=== PATIENT | male | born 1935 | race Asian ===

== ENCOUNTER 2017-07-15 15:54 | Emergency (ER) | payer MEDICARE ==
[~2017-07-15] VITALS: Ht 188 cm; Wt 79.4 kg
[2017-07-15 16:04] VITALS: BP 134/80
--- NOTE | 2017-07-15 16:22 | Emergency Room Report ---
History of Present Illness General Chief Complaint: Head Injury Source: Patient Present Illness HPI 82-year-old male patient presents to the ER status post mechanical fall. Patient reports that he tripped and fell. Patient denies dizziness, syncope. Patient reports no vision loss or vision changes. Patient denies fever, chest pain, shortness of breath. Patient reports that he has a small laceration over his right eyebrow. Patient reports bleeding from site of injury. Patient denies pain with ambulation. Patient denies pain in upper or lower extremities. Reports not currently taking any blood thinners. Patient unsure of tetanus status. Allergies: Uncoded Allergies: DYAZIBE (Allergy, Unknown, 07/15/17) Patient History Past Medical History: see triage record Reviewed Nursing Documentation: PMH: Agreed; PSxH: Agreed Nursing Documentation-PMH Past Medical History: No History, Except For Hx Cardiac Problems: Yes - heart murmur Hx Hypertension: Yes Hx Pacemaker: No Hx Asthma: No Hx COPD: No Hx Diabetes: No Hx Cancer: No Hx Gastrointestinal Problems: No History Of Psychiatric Problem: No Hx Neurological Problems: No Hx Cerebrovascular Accident: No Hx Seizures: No Review of Systems All Other Systems: negative except mentioned in HPI Physical Exam Vital Signs Date Time Temp Pulse Resp B/P (MAP) Pulse Ox O2 Delivery O2 Flow Rate FiO2 07/15/17 16:04 97.6 92 16 134/80 95 Room Air 97.5 Sp02 EP Interpretation: reviewed, normal General Appearance: well appearing, no apparent distress, alert, GCS 15, non- toxic Head: normocephalic, atraumatic, other - Negative Jackson sign, negative raccoon eyes, no skull depression Eyes: bilateral eye normal inspection, bilateral eye PERRL ENT: hearing grossly normal, normal pharynx, no angioedema, normal voice, TMs + canals normal, uvula midline, moist mucus membranes, other - no hemotympanum Neck: full range of motion Respiratory: lungs clear, normal breath sounds, no rhonchi, no respiratory distress, no accessory muscle use, no wheezing, speaking full sentences Cardiovascular #1: regular rate, rhythm, no edema Musculoskeletal: back normal, digits/nails normal, gait/station normal, normal range of motion, non-tender Neurologic: alert, oriented x3, responsive, beam dyer operator III-XII nml as tested, motor strength/tone normal, sensory intact, cerebellar normal, normal gait, speech normal Psychiatric: mood/affect normal Skin: laceration - 2 cm L-shaped laceration over right eyebrow, no active bleeding, linear, superficial Procedures Laceration/Wound Repair Laceration/Wound Repair : Consent: Verbal Wound Location: face Wound's Depth, Shape: superficial Wound Length (cm): 2 Wound Explored: contaminated Irrigated w/ Saline (ccs): 10 Betadine Prep?: Yes Anesthesia: Lidocaine w/ Epi Volume Anesthetic (ccs): 1 Wound Debrided: extensive Wound Repaired With: sutures Suture Size/Type: 6:0, other - ethilon Number of Sutures: 3 Layer Closure?: No Sterile Dressing Applied?: Yes Splint Applied?: No Sling Applied?: No Patient Tolerated: Well Complications: None Medical Decision Making PA Attestation Dr. Bernardo is my supervising Physician whom patient management has been discussed with. Diagnostic Impression: Primary Impression: Acute head injury Additional Impression: Laceration ER Course Pt presents to ED c/o laceration on right eyebrow s/p mechanical fall. DDX considered but are not limited to laceration, abrasion, contusion, cellulitis, ICH, skull fracture. Ordered CT of head to rule out acute pathology. VITAL SIGNS are WNL, patient is afebrile Ordered CT head, lidocaine, TDap. ED INTERVENTIONS: Wound was cleaned and copiously irrigated using normal saline, no FB removed. Local block using Lidocaine 1% with epi. Laceration repaired with 3 sutures, patient tolerated procedure well. Wound cleaned and covered using sterile dressing and Bacitracin. Keep dressing clean and dry. Followup for wound check and suture removal. TDAP provided. CT head negative for acute disease. Copy of report provided to patient. Take NSAIDs OTC for pain symptoms. Patient OK for discharge to home. Patient resting comfortably, in no acute distress, nontoxic appearing. DISCHARGE: Rx provided for Keflex At this time pt is stable for d/c to home. Patient resting comfortably, in no acute distress, nontoxic appearing, talking without difficulty. Will provide with patient care instructions and any necessary prescriptions. Patient to take medication as instructed. Care plan and follow-up instructions provided. Patient questions asked and answered. Patient reports understanding and agreement to treatment plan. Patient instructed to follow-up with primary care provider in 1-3 days for wound check and 5-7 days for removal of sutures. ER precautions given. Patient instructed to return to ER immediately for any new or worsening of symptoms. - Please note that this Emergency Department Report was dictated using [employer] dyer operator technology software, occasionally this can lead to erroneous entry secondary to interpretation by the dictation equipment. CT/MRI/US Diagnostic Results CT/MRI/US Diagnostic Results : Imaging Test Ordered: CT head Impression No evidence of acute intracranial hemorrhage, mass effect or critical edema. MRI may be obtained for more sensitive evaluation as clinically indicated. Atrophy and nonspecific periventricular hypoattenuation suggestive chronic ischemia microvascular changes. Last Vital Signs Date Time Temp Pulse Resp B/P (MAP) Pulse Ox O2 Delivery O2 Flow Rate FiO2 07/15/17 16:04 97.6 92 16 134/80 95 Room Air 97.5 Disposition: HOME, SELF-CARE Condition: Stable Scripts Cephalexin* (KEFLEX*) 500 Mg Capsule 500 MG ORAL EVERY 12 HOURS, #14 CAP 0 Refills Prov: Ozzie Damon 07/15/17 Patient Instructions: Facial Laceration, [id number], Head Injury, Adult, Easy -to-Read Additional Instructions: Patient instructed to follow-up with primary care provider in 1-3 days for wound check and 5-7 days for removal of sutures. Take medications as directed. OTC NSAIDs for pain relief. Keep wound clean and dry. Patient questions asked and answered. ER precautions given, patient instructed to return to ER immediately for any new or worsening of symptoms including but not limited to chest pain, SOB, intractable vomiting, vision loss, vision changes, BOOTH. Ozize Damon July 15, 2017 16:22
[2017-07-15] MEDS ORDERED: Lidocaine 1% MPF 10mg/ml 5ml IM ONE (17:00)
[2017-07-15] MEDS ORDERED: Tetanus/Diptheria/Pertussis Vaccine 0.5ml Syr IM ONE (17:00)
--- NOTE | 2017-07-15 17:02 | Diagnostic Imaging Report ---
Indication: Pain Technique: Continuous helical CT scanning of the head was performed utilizing automated exposure control without intravenous contrast material. Axial and coronal reconstructions were obtained. Comparison: None CT dose: Total DLP 1418.06 mGycm; CTDI vol 70.38 mGy Findings: There is no acute intracranial hemorrhage, midline shift, mass effect or cortical edema. There are bilateral basal ganglia calcifications. The ventricles, cisterns and sulci are prominent consistent with atrophy. Periventricular hypoattenuation is seen, a nonspecific finding. There are atherosclerotic vascular calcifications Visualized mastoid air cells and paranasal sinuses are unremarkable. No focal lesions of the bony calvarium or soft tissues of the scalp are seen. IMPRESSION: No evidence of acute intracranial hemorrhage, mass effect or cortical edema. MRI may be obtained for more sensitive evaluation as clinically indicated. Atrophy and nonspecific periventricular hypoattenuation suggestive of chronic ischemic microvascular changes. The CT scanner at [facility] is accredited by the [employer] and the scans are performed using protocols designed to limit radiation exposure to as low as reasonably achievable to attain images of sufficient resolution adequate for diagnostic evaluation.
[2017-07-15] MEDS ORDERED: CEPHALEXIN500 MG ORAL (17:17)
[2017-07-15] MEDS ORDERED: Bacitracin Oint UD TOPIC ONE (17:30)
[2017-07-15 17:44] VITALS: BP 124/73
== END 2017-07-15 18:00 | disposition home or self-care (01) ==
LOC: EMR 17:47
DX: S01.111A Laceration without foreign body of right eyelid and periocular area, initial encounter (principal); W01.0XXA Fall on same level from slipping, tripping and stumbling without subsequent striking against object, initial encounter; Y92.9 Unspecified place or not applicable; Z23 Encounter for immunization; I10 Essential (primary) hypertension; R51 Headache
CPT/HCPCS: 70450; 90471; 90715; 99284